=== PATIENT | female | born 1960 | race Caucasian/White ===

== ENCOUNTER 2017-08-09 12:10 | Inpatient (IN) | payer OTHER ==
[~2017-08-09] VITALS: Ht 162.6 cm; Wt 78.0 kg
[2017-08-09 12:21] VITALS: BP 150/86
--- NOTE | 2017-08-09 12:27 | NUR ---
Pt taken to bed 12.
--- NOTE | 2017-08-09 12:29 | NUR ---
57F BIB DAUGHTER C/O RECTAL BLEEDING D/T HEMORRHOIDS X YESTERDAY NIGHT; PER FAMILY PT UTILIZED 4 PADS SINCE LAST NIGHT TO NOW; FAMILY STATES PT NOTED BLEEDING WITH SMALL CLOTTS; PT C/O ACHING PAIN TO RECTUM, NON-RADIATING, 8/10 AT THIS TIME; SLIGHT BLEEDING NOTED TO SITE AT THIS TIME; PT STATES NO N/V/D AT THIS TIME; PT AA&OX4, BL LUNG SOUNDS CLEAR, RR EVEN/UNLABORED, SKIN IS WARM/DRY WITH EVEN AND STEADY GAIT; PT RESTING IN BED WITH HOB ELEVATED AND IN LOWEST POSITION; POSITIONED FOR COMFORT; ER MD MADE AWARE OF STATUS. WILL CONTINUE TO MONITOR.
--- NOTE | 2017-08-09 12:29 | NUR ---
PIETER BAEZ CHAPERONED ER MD DR. CLEARY FOR FEMALE RECTAL EXAM.
[2017-08-09] MEDS ORDERED: NACL 0.9% 1,000 ML IV SCH (12:38)
[2017-08-09] MEDS ORDERED: MORPHINE SULFATE 2 MG/ML SYR IVP ONE (12:40)
[2017-08-09] MEDS ORDERED: ONDANSETRON 4 MG/2 ML VIAL IVP ONE (12:40)
--- NOTE | 2017-08-09 12:57 | NUR ---
XRAY AT BEDSIDE.
[2017-08-09 13:03] LABS: BASOPHILS # (AUTO) 0.4 K/uL (0.00-0.22); BASOPHILS % (AUTO) 3.6 % (0.0-2.0); EOSINOPHILS # (AUTO) 0.1 K/uL (0-0.4); EOSINOPHILS % (AUTO) 0.9 % (0.0-4.0); HEMATOCRIT 38.7 % (36-48); HEMOGLOBIN 12.3 g/dL (12.0-16.0); LYMPHOCYTES # (AUTO) 2.2 K/uL (2.5-16.5); LYMPHOCYTES % (AUTO) 20.9 % (20.5-51.1); MEAN CORPUSCULAR HEMOGLOBIN 25 pg (27-31); MEAN CORPUSCULAR HGB CONC 32 g/dL (33-37); MEAN CORPUSCULAR VOLUME 80 fL (80-94); MONOCYTES # (AUTO) 0.4 K/uL (0.8-1.0); MONOCYTES % (AUTO) 3.6 % (1.7-9.3); NEUTROPHILS # (AUTO) 7.2 K/uL (1.8-7.7); PLATELET COUNT (AUTO) 248 K/uL (140-450); RED BLOOD CELL COUNT(AUTO) 4.86 MIL/uL (4.20-5.40); RED CELL DISTRIBUTION WIDTH 13.6 % (11.6-13.7); WHITE BLOOD COUNT (AUTO) 10.4 K/uL (4.8-10.8)
--- NOTE | 2017-08-09 13:03 | NUR ---
PT TAKEN TO CT VIA W/C ACCOMPANIED BY [employer] [employer] AT THIS TIME.
[2017-08-09 13:09] LABS: ANION GAP 14.3 (8-16); CREATININE 0.8 mg/dL (0.6-1.3); POTASSIUM 3.3 mmol/L (3.5-5.1)
[2017-08-09 13:13] LABS: PROTHROMBIN TIME 14.9 secs (10.8-13.4)
[2017-08-09 13:15] LABS: ALBUMIN 3.6 g/dL (3.4-5.0); TOTAL BILIRUBIN 1.2 mg/dL (0.0-1.0)
--- NOTE | 2017-08-09 13:33 | NUR ---
PER FAMILY, PT STATES PAIN 4/10 AT THIS TIME AND PT WOULD NOT LIKE MEDICATION AT THIS TIME; ER MD DR. CLEARY NOTIFIED; RR EVEN/UNLABORED; POSITIONED FOR COMFORT; WILL CONTINUE TO MONITOR.
--- NOTE | 2017-08-09 14:30 | NUR ---
PT APPEARS TO BE RESTING COMFORTABLY IN BED; RR EVEN/UNLABORED; POSITIONED FOR COMFORT; WILL CONTINUE TO MONITOR.
[2017-08-09] MEDS: DEXT 5% / NACL 0.45% 1,000 ML IV SCH (15:06)
[2017-08-09] MEDS ORDERED: LISI5TAB18 PO (15:08)
[2017-08-09] MEDS ORDERED: RIVA20TA PO (15:08)
[2017-08-09] MEDS ORDERED: ATOR40TA PO (15:08)
[2017-08-09] MEDS ORDERED: METO100T14 PO (15:08)
[2017-08-09] MEDS ORDERED: HYDROmorphone PFS 2 MG/ML SYR IVP PRN (15:10)
[2017-08-09] MEDS ORDERED: ACETAMINOPHEN 325 MG TAB PO PRN (15:10)
[2017-08-09] MEDS ORDERED: ONDANSETRON 4 MG/2 ML VIAL IVP PRN (15:10)
--- NOTE | 2017-08-09 15:18 | NUR ---
SAAD CLEARY AT BEDSIDE.
--- NOTE | 2017-08-09 15:33 | NUR ---
LAB AT BEDSIDE.
--- NOTE | 2017-08-09 15:38 | NUR ---
Patient will be admitted to care of DR. DAVIS. Admited to TELEMETRY. Will go to room 120A. Belongings list completed. Report to PIETER DIEGO AT BEDSIDE.
--- NOTE | 2017-08-09 15:55 | NUR ---
RECEIVED PT FROM ER VIA [facility]. REPORT GIVEN AT BEDSIDE. PT IS JOSE HOLLY. PT SPEAKS MONGOLIAN, PT AGREED TO USE HER DAUGHTER C SOFTWARE ENGINEER. DX RECTAL BLEEDING, THROMBUS EXTERNAL HEMORRHOID. CHECKED RECTUM, PIC TAKEN. CHANGED PAD. IV NOTED TO THE RIGHT AC 20G, FLUSHED, ASYMPTOMATIC. SCD APPLIED. NO S/S OF ACUTE DISTRESS. NO S/S OF ANEMIA, VITALS TAKEN WITHIN NORMAL LIMIT. ALL SAFETY PRECAUTIONS MET. PT IS ORIENTED TO THE ROOM, CALL LIGHT WITHIN REACH. Addendum: 08/09/17 at 1953 by Alvino Pollock RN PLACED PT ON TELE
[2017-08-09 16:00] VITALS: BP 142/71
--- NOTE | 2017-08-09 18:09 | NUR ---
SPOKE WITH DR WINTER OVER THE PHONE. MADE AWARE OF PT'S CONDITION. DR WINTER STATED HE WILL BE HERE SHORTLY.
--- NOTE | 2017-08-09 19:05 | NUR ---
DR WINTER HAS SEEN THE PT. DR WINTER WROTE RECOMMENDATIONS IN CHART.
--- NOTE | 2017-08-09 19:15 | NUR ---
PAGED DR SANTANA WHO IS COSTUME DESIGNER. ENDORSED PT TO HAND PACKER, MADE HAND PACKER AWARE OF DR WINTER'S RECOMMENDATIONS AND PLEASE CLARIFY IF PT NEED TO BE NPO. PT IN STABLE CONDITION.
--- NOTE | 2017-08-09 19:35 | NUR ---
RECEIVED FROM AM RN IN BED AWAKE AND ALERT. DAUGHTER AT BEDSIDE. SEEN BY MD WINTER. CALL LIGHT WITH IN REACH AND CARE PLANS FOR THE NIGHT DISCUSSED WITH HER AND DAUGHTER. TELEMETRY MONITORING. DX. RECTAL BLEED. ENCOURGED TO INFORM ME IF WITH BLEEDING STILL.
[2017-08-09 20:35] VITALS: BP 144/76
[2017-08-09] MEDS: METOPROLOL 50 MG TAB PO SCH (20:42)
[2017-08-09] MEDS: PIPER/TAZO 2.25GM/D5W PREMIX 50 ML IV SCH (20:46)
--- NOTE | 2017-08-09 23:00 | NUR ---
MD SANTANA HAD ORDERED DIET OF CLEAR LIQUID AND CONSULT FOR GI MD. Chan CONKLIN. PER MD SANTANA HE WILL INFORM MD ALVAREZ.
[2017-08-10] VITALS: BP 122/73
--- NOTE | 2017-08-10 01:03 | NUR ---
PT. SLEEPING AT THIS TIME. WAKES UP WHEN TOUCHED. CALL LIGHT WITH IN REACH AT ALL TIMES. ASSISTED TO RESTROOM LOCATED INSIDE ROOM. ABLE TO AMBULATE.
[2017-08-10] MEDS: DEXT 5% / NACL 0.45% 1,000 ML IV SCH ×3 (03:15→21:06)
[2017-08-10 05:02] VITALS: BP 123/68
[2017-08-10] MEDS: PIPER/TAZO 2.25GM/D5W PREMIX 50 ML IV SCH ×3 (05:43→21:09)
--- NOTE | 2017-08-10 07:10 | NUR ---
RECEIVED PATIENT REPORT AT BEDSIDE. PATIENT AWAKE AND ALERT. NO S/S OF DISTRESS NOTED. PATIENT IS SYRIAC SPEAKING. IV LINE NOTED TO LEFT AC WITH IVF INFUSING WELL. PATIENT ON TELE MONITORING. BED LOWERED WITH CALL LIGHT WITHIN REACH. WILL CONTINUE TO MONITOR
--- NOTE | 2017-08-10 07:20 | NUR ---
ENDORSED TO THE NEXT RN AWAKE AND NO COMPLAINTS DONE. SLEPT WELL THIS SHIFT.
[2017-08-10 07:45] LABS: BASOPHILS # (AUTO) 0.1 K/uL (0.00-0.22); BASOPHILS % (AUTO) 1.3 % (0.0-2.0); EOSINOPHILS # (AUTO) 0.2 K/uL (0-0.4); EOSINOPHILS % (AUTO) 2.1 % (0.0-4.0); HEMATOCRIT 37.4 % (36-48); HEMOGLOBIN 12.1 g/dL (12.0-16.0); LYMPHOCYTES # (AUTO) 1.5 K/uL (2.5-16.5); LYMPHOCYTES % (AUTO) 15.1 % (20.5-51.1); MEAN CORPUSCULAR HEMOGLOBIN 26 pg (27-31); MEAN CORPUSCULAR HGB CONC 32 g/dL (33-37); MEAN CORPUSCULAR VOLUME 80 fL (80-94); MONOCYTES # (AUTO) 0.3 K/uL (0.8-1.0); MONOCYTES % (AUTO) 3.2 % (1.7-9.3); NEUTROPHILS # (AUTO) 7.9 K/uL (1.8-7.7); NEUTROPHILS % (AUTO) 78.3 % (42.2-75.2); PLATELET COUNT (AUTO) 228 K/uL (140-450); RED BLOOD CELL COUNT(AUTO) 4.66 MIL/uL (4.20-5.40); RED CELL DISTRIBUTION WIDTH 13.6 % (11.6-13.7)
[2017-08-10 08:00] VITALS: BP 141/82
[2017-08-10 08:52] LABS: ALBUMIN 2.8 g/dL (3.4-5.0); ANION GAP 9.1 (8-16); CARBON DIOXIDE 27.4 mmol/L (21-32); CREATININE 0.8 mg/dL (0.6-1.3); POTASSIUM 3.5 mmol/L (3.5-5.1); TOTAL BILIRUBIN 1.7 mg/dL (0.0-1.0)
[2017-08-10] MEDS: PANTOPRAZOLE 40 MG INJ VIAL IVP SCH (08:56)
[2017-08-10] MEDS: ATORVASTATIN 20 MG TAB PO SCH (08:57)
[2017-08-10] MEDS: METOPROLOL 50 MG TAB PO SCH ×2 (08:57→21:09)
--- NOTE | 2017-08-10 09:13 | NUR ---
PATIENT HAS BEEN SCREENED AND CATEGORIZED MODERATE NUTRITION RISK. PATIENT WILL BE SEEN WITHIN 3-5 DAYS OF ADMISSION. 08/11/17-08/13/[address]
--- NOTE | 2017-08-10 09:30 | NUR ---
PATIENT AMBULATED TO THE BATHROOM TO VOID. NO S/S OF DISTRESS NOTED
--- NOTE | 2017-08-10 11:46 | NUR ---
CM NOTE INITIAL REVIEW FAXED TO [facility] [phone] [place] # [phone]
--- NOTE | 2017-08-10 13:50 | NUR ---
I call Patient's Daughter Shani Vaughan at discuss, confirm and gather patient's information. Patient's daughter confirmed that all patient's information provided previously during screen was correct and was pleased her mother was able to communicate. She agreed that Patient will be leaving soon to [place] and she will be following up with her care there with primary MD. She did had some questions and I explained to her my scope of practice and role as a medical aide. She verbalized understanding and stated "I will be asking the MD and Nurses some of my concerns. I encouraged communication with the staff and point out resources provided by there ad writer to her mother. Patient's daughter thank me for the resources and my assistance and I ended the call.
[2017-08-10 15:00] VITALS: BP 131/70
--- NOTE | 2017-08-10 15:30 | NUR ---
PATIENT SEEN BY DR CONKLIN
[2017-08-10] MEDS ORDERED: BOWEL EVACUANT DRINK 4,000 ML PDS PO SCH (16:00)
[2017-08-10] MEDS: LACTULOSE 20 GM/30 ML UDC PO SCH ×2 (17:25→21:09)
[2017-08-10] MEDS: SENNA 8.6 MG TAB PO SCH (17:26)
[2017-08-10 17:43] VITALS: BP 131/71
--- NOTE | 2017-08-10 18:00 | NUR ---
FAMILY MEMBERS PRESENT AT BEDSIDE. PATIENT AWAKE IN BED
--- NOTE | 2017-08-10 19:31 | NUR ---
PATIENT REPORT GIVEN AT BEDSIDE. NO S/S OF DISTRESS NOTED
--- NOTE | 2017-08-10 19:32 | NUR ---
RECEIVED REPORT FROM DAY SHIFT NURSE. AAOX4. NO DISTRESS NOTED. IV TO LEFT AC #20G, D5 1/2NS AT 100 ML/HR. NO C/O PAIN. PT ON ROOM AIR. CALL LIGHT WITHIN REACH.
[2017-08-10 20:00] VITALS: BP 127/72
--- NOTE | 2017-08-10 21:25 | NUR ---
PT LYING IN BED. MINIMAL RECTAL BLEEDING NOTED. NO C/O PAIN. CALL LIGHT WITHIN REACH.
--- NOTE | 2017-08-10 23:35 | NUR ---
[employer] PHONE USED FOR TRANSLATION ID# [id number]. PER HEAD OF RESEARCH & INSIGHTS, PT HAS RECTAL PAIN SACLE 03/20 AND WANTS PAIN MEDS. Addendum: 08/11/17 at 0033 by Les Gustafson RN INCOMPLETE
--- NOTE | 2017-08-10 23:36 | NUR ---
BLUE PHONE USED FOR TRANSLATION ID# [id number]. PER LOOPER FIXER, PT HAS RECTAL PAIN SCALE 10/10 AND WANTS PAIN MEDS. WILL MEDICATE PT.
[2017-08-11] VITALS: BP 146/79
--- NOTE | 2017-08-11 02:05 | NUR ---
PT SLEEPING BUT EASILY AROUSABLE. NO S/S OF PAIN OR DISCOMFORT. CALL LIGHT WITHIN REACH.
[2017-08-11 04:00] VITALS: BP 128/78
--- NOTE | 2017-08-11 04:30 | NUR ---
PT SLEEPING BUT WAKES EASILY. NO S/S OF DISTRESS. CALL LIGHT WITHIN REACH.
[2017-08-11] MEDS: PIPER/TAZO 2.25GM/D5W PREMIX 50 ML IV SCH ×3 (05:24→22:19)
--- NOTE | 2017-08-11 06:20 | NUR ---
PT LYING COMFORTABLY IN BED, AWAKE. NO C/O PAIN. ALL NEEDS MET AT THIS TIME. CALL LIGHT WITHIN REACH.
[2017-08-11] MEDS: DEXT 5% / NACL 0.45% 1,000 ML IV SCH ×2 (07:06→12:21)
--- NOTE | 2017-08-11 07:14 | NUR ---
ENDORSED PT TO DAY SHIFT NURSE. PT IN STABLE CONDITION.
--- NOTE | 2017-08-11 07:20 | NUR ---
RECEIVED REPORT AT BEDSIDE FOR CONTINUITY OF CARE FROM BUSINESS TEAM LEADER NURSE. PATIENT ALERT AND EASILY WOKEN. MOHAWK SPEAKING.NO ACUTE DISTRESS NOTED. PT WITH PATENT IV TO LEFT AC 20G D51/2NS @100ML/HR. CALL LIGHT WITHIN REACH. BED IN LOW POSITION. WILL CONT TO MONITOR PT.
[2017-08-11 07:36] VITALS: BP 144/72
--- NOTE | 2017-08-11 09:00 | NUR ---
PT AMBULATED TO BATHROOM PATIENT VOIDED URINE. NOTED PATIENT WITH BLOOD STREAKS ON DISPOSABLE SONNY. PATIENT DENIES PAIN AT THIS TIME. FAMILY AT BEDSIDE. WILL CONT TO MONITOR PT.
[2017-08-11] MEDS: PANTOPRAZOLE 40 MG INJ VIAL IVP SCH (10:15)
[2017-08-11] MEDS: ATORVASTATIN 20 MG TAB PO SCH (10:16)
[2017-08-11] MEDS: LACTULOSE 20 GM/30 ML UDC PO SCH ×4 (10:16→22:19)
[2017-08-11] MEDS: SENNA 8.6 MG TAB PO SCH ×3 (10:17→16:45)
[2017-08-11] MEDS: METOPROLOL 50 MG TAB PO SCH ×2 (10:21→22:20)
[2017-08-11 12:00] VITALS: BP 146/80
--- NOTE | 2017-08-11 12:21 | NUR ---
ADMINISTERED SCHEDULED MEDICATIONS ORDERED. PATIENT TOLERATED WELL. USED ADVERTISING SOLICITOR#[id number] ANNAR. EDUCATED PATIENT ON USE OF LAXATIVE PRIOR TO COLONOSCOPY PROCEDURE. NO ACUTE DISTRESS. PATIENT CONT WITH IVF ORDERED. ASHLEY WELL. CALL LIGHT WITHIN REACH. WILL CONT TO MONITOR PT.
--- NOTE | 2017-08-11 14:35 | NUR ---
PATIENT SLEEPING SOUNDLY IN BED. NO ACUTE DISTRESS NOTED. RESP EVEN AND UNLABORED. CALL LIGHT WITHIN REACH. WILL CONT TO MONITOR.
[2017-08-11 16:00] VITALS: BP 135/75
[2017-08-11] MEDS ORDERED: BOWEL EVACUANT DRINK 4,000 ML PDS PO SCH ×2 (16:00→16:10)
[2017-08-11] MEDS ORDERED: MAGNESIUM CITRATE 300 ML BTL PO SCH (16:11)
--- NOTE | 2017-08-11 16:45 | NUR ---
ADMINISTERED SCHEDULED MEDICATION ORDERED. EXPLAINED WHAT MEDICATION USE FOR. OVERNIGHT CASHIER NUMBER [id number].
--- NOTE | 2017-08-11 19:15 | NUR ---
ENDORSED REPORT TO DIGITAL ACCOUNT COORDINATOR NURSE AT BEDSIDE FOR CONTINUITY OF CARE. PATIENT STABLE.
--- NOTE | 2017-08-11 19:25 | NUR ---
RECEIVED PT IN STABLE CONDITION FROM AM NURSE. AWAKE,ALERT AND ORIENTED X4. SPEAKS SPANISH. ON TELE MONITOR. AMBULATORY . WITH IVF INFUSING WELL ON THE LT HAND #22. NO C/O ANY DISCOMFORT NOR PAIN AT THIS TIME. EXPLAINED TO PT THE NEED TO TAKE ALL THE PREP FOR COLONOSCOPY ARIANNE. PLAN OF CARE DISCUSSED AND STILL NEED FURTHER EXPLANATION . BED ON LOW POSITION . CALL LIGHT PLACED WITHIN EASY REACH. WILL CONTINUE TO MONITOR.
[2017-08-11 20:00] VITALS: BP 150/83
--- NOTE | 2017-08-11 20:10 | NUR ---
PT. NEED MORE EXPLANATION ABOUT THE PREP FOR COLOSCOPY. USED [employer] PHONE OIL DELIVERER FABRIZIO #[id number]. PT ABLE TO VERBALIZED UNDERSTANDING AFTER THE CONVERSATION WITH FABRIZIO.
[2017-08-11] MEDS: POLYETHYLENE GLYCOL 17 GM/PKT PO SCH ×2 (22:00→22:20)
--- NOTE | 2017-08-11 22:45 | NUR ---
PT JUST FINISHED AROUND 1,000 ML GOLYTELY, FINISHED THE CITROMA BUT ONLY TOOK A LITTLE OF THE LACTULOSE AND REFUSED THE MIRALAX. SHE SAID NO MORE. WILL CALL DR. Chan CONKLIN TO MADE HIM AWARE.
--- NOTE | 2017-08-11 23:00 | NUR ---
PAGED DR. Chan CONKLIN REGARDING PT REFUSING TO FINISHED THE PREP FOR COLONOSCOPY. HE SAID ITS OK. JUST CHECK OUTPUT. KEPT PT NPO AFTER MN.
--- NOTE | 2017-08-12 00:10 | NUR ---
PT INSTRUCTED NOTHING BY MOUTH FROM THIS TIME FOR THE COLONOSCOPY
--- NOTE | 2017-08-12 00:30 | NUR ---
HAD ANOTHER BM. YELLOWISH LIQUID NO SOLIDS NOTED.
[2017-08-12 00:35] VITALS: BP 117/76
[2017-08-12] MEDS: DEXT 5% / NACL 0.45% 1,000 ML IV SCH ×2 (01:26→11:10)
--- NOTE | 2017-08-12 02:15 | NUR ---
PT IS ASLEEP. NO S/S OF ANY DISCOMFORT NOTED.
[2017-08-12 04:05] VITALS: BP 142/80
[2017-08-12] MEDS: PIPER/TAZO 2.25GM/D5W PREMIX 50 ML IV SCH (04:42)
--- NOTE | 2017-08-12 04:48 | NUR ---
ADDITIONAL NOTES FOR ABOVE NOTES: NO BLOOD NOTED ON THE STOOL .
--- NOTE | 2017-08-12 04:48 | NUR ---
WNET TO THE BATHROOM. ANOTHER LIQUID CLEAR YELLOWISH STOOL , NO SOLIDS NOTED.
[2017-08-12 06:59] LABS: BASOPHILS # (AUTO) 0.1 K/uL (0.00-0.22); EOSINOPHILS # (AUTO) 0.3 K/uL (0-0.4); EOSINOPHILS % (AUTO) 3.5 % (0.0-4.0); HEMATOCRIT 35.9 % (36-48); HEMOGLOBIN 11.7 g/dL (12.0-16.0); LYMPHOCYTES # (AUTO) 1.9 K/uL (2.5-16.5); MEAN CORPUSCULAR HEMOGLOBIN 26 pg (27-31); MEAN CORPUSCULAR HGB CONC 33 g/dL (33-37); MEAN CORPUSCULAR VOLUME 80 fL (80-94); MONOCYTES # (AUTO) 0.4 K/uL (0.8-1.0); MONOCYTES % (AUTO) 6.1 % (1.7-9.3); NEUTROPHILS # (AUTO) 4.5 K/uL (1.8-7.7); NEUTROPHILS % (AUTO) 62.4 % (42.2-75.2); PLATELET COUNT (AUTO) 195 K/uL (140-450); RED CELL DISTRIBUTION WIDTH 13.4 % (11.6-13.7); WHITE BLOOD COUNT (AUTO) 7.2 K/uL (4.8-10.8)
--- NOTE | 2017-08-12 07:10 | NUR ---
RECEIVED PATIENT REPORT. PATIENT ASLEEP IN BED. NO S/S OF DISTRESS NOTED. CALL LIGHT WITHIN REACH. WILL CONTINUE TO MONITOR.
--- NOTE | 2017-08-12 07:30 | NUR ---
ENDORSED PT IN STABLE CONDITION TO AM NURSE.
[2017-08-12 07:41] LABS: ANION GAP 12.3 (8-16); CARBON DIOXIDE 26.9 mmol/L (21-32); CREATININE 0.8 mg/dL (0.6-1.3); POTASSIUM 3.2 mmol/L (3.5-5.1); TOTAL BILIRUBIN 1.4 mg/dL (0.0-1.0)
[2017-08-12 08:00] VITALS: BP 164/82
--- NOTE | 2017-08-12 08:45 | NUR ---
USED RESAAS ENGINEER STATION MAINLINE PHONE ID NUMBER: [id number] TO EXPLAIN TO THE PATIENT THAT SHE WILL BE HAVING COLONOSCOPY TODAY AND THE LAXATIVES ARE ORDERED FOR HER TO PREP HER FOR THE PROCEDURE. PATIENT REFUSED TO TAKE THE MEDICATIONS AND STATES THAT SHE FELT SICK DRINKING THE BOWEL PREP LAST NIGHT AND CAN NOT TAKE ANYMORE.
[2017-08-12] MEDS: PANTOPRAZOLE 40 MG INJ VIAL IVP SCH (08:50)
[2017-08-12] MEDS: METOPROLOL 50 MG TAB PO SCH ×2 (08:50→21:18)
[2017-08-12] MEDS: ATORVASTATIN 20 MG TAB PO SCH (08:50)
[2017-08-12] MEDS: LACTULOSE 20 GM/30 ML UDC PO SCH (09:00)
[2017-08-12] MEDS: SENNA 8.6 MG TAB PO SCH (09:00)
[2017-08-12] MEDS: POLYETHYLENE GLYCOL 17 GM/PKT PO SCH (09:00)
[2017-08-12] MEDS ORDERED: POTASSIUM CHLORIDE 10 MEQ TABER PO SCH (09:45)
[2017-08-12] MEDS ORDERED: PHYTONADIONE 10 MG/ML AMP SUBQ SCH (10:15)
[2017-08-12] MEDS ORDERED: fentaNYL 0.05 MG/ML VIAL ONE (10:42)
[2017-08-12] MEDS ORDERED: MIDAZOLAM 2 MG/2 ML VIAL ONE ×2 (10:42)
[2017-08-12] MEDS ORDERED: diphenhydrAMINE 50 MG/ML VIAL ONE (10:42)
--- NOTE | 2017-08-12 11:16 | NUR ---
ECHO DONE AT BEDSIDE
[2017-08-12 12:00] VITALS: BP 145/59
--- NOTE | 2017-08-12 12:40 | NUR ---
PATIENT LEFT THE UNIT FOR COLONOSCOPY
--- NOTE | 2017-08-12 13:20 | NUR ---
PATIENT BACK FROM COLONOSCOPY. PATIENT AWAKE AND ALERT NO S/S OF DISTRESS TEMP 97.1 BP: 110/52 HR: 57 O2 SAT 97% ON ROOM AIR
[2017-08-12] MEDS ORDERED: MIDAZOLAM 2 MG/2 ML VIAL IVP ONE (13:40)
[2017-08-12] MEDS ORDERED: fentaNYL 0.05 MG/ML VIAL IVP ONE (13:40)
[2017-08-12 16:00] VITALS: BP 114/65
[2017-08-12] MEDS: MORPHINE SULFATE 2 MG/ML SYR IVP PRN (18:49)
--- NOTE | 2017-08-12 19:26 | NUR ---
PATIENT REPORT GIVEN AT BEDSIDE. PATIENT ENDORSED IN STABLE CONDITION
--- NOTE | 2017-08-12 19:27 | NUR ---
RECEIVED PT FROM DAY SHIFT NURSE RK-RN. AOX4 SPEAKS LAO. BLUE PHONE IN ROOM. AMBULATORY. ON ROOM AIR. SKIN INTACT. IV LEFT HAND #22G, D5 1/2 NS 10ML/HR. CARDIAC DIET. CALL LIGHT WITHIN REACH. BED IN LOWEST POSITION. WILL CONTINUE TO MONITOR.
[2017-08-12 20:00] VITALS: BP 131/75
--- NOTE | 2017-08-12 21:20 | NUR ---
PT TOLERATED MEDICATION WELL. NO S/S OF RESPIRATORY DISTRESS OR DISCOMFORT NOTED. CALL LIGHT WITHIN REACH. WILL CONTINUE TO MONITOR.
--- NOTE | 2017-08-12 23:30 | NUR ---
PT REQUESTED A WARM BLANKET. PT RESTING IN BED TO CONTINUE SLEEPING. NO S/S OF RESPIRATORY DISTRESS OR DISCOMFORT NOTED. CALL LIGHT WITHIN REACH. BED IN LOWEST POSITION. WILL CONTINUE TO MONITOR.
[2017-08-13] VITALS: BP 120/56
--- NOTE | 2017-08-13 00:10 | NUR ---
PT SLEEPING AT THIS TIME. NO S/S OF RESPIRATORY DISTRESS OR DISCOMFORT NOTED AT THIS TIME. CALL LIGHT WITHIN REACH. BED IN LOWEST POSITION. WILL CONTINUE TO MONITOR.
--- NOTE | 2017-08-13 02:35 | NUR ---
PT SLEEPING AT THIS TIME. NO S/S OF RESPIRATORY DISTRESS OR DISCOMFORT NOTED. WILL CONTINUE TO MONITOR.
[2017-08-13 04:00] VITALS: BP 146/81
--- NOTE | 2017-08-13 04:00 | NUR ---
PT RESTING IN BED SLEEPING. NO S/S OF RESPIRATORY DISTRESS OR DISCOMFORT. VITAL SIGNS TOLERATED WELL. CALL LIGHT WITHIN REACH. BED IN LOWEST POSITION. WILL CONTINUE TO MONITOR.
[2017-08-13 07:02] LABS: BASOPHILS # (AUTO) 0.2 K/uL (0.00-0.22); BASOPHILS % (AUTO) 2.4 % (0.0-2.0); EOSINOPHILS # (AUTO) 0.2 K/uL (0-0.4); EOSINOPHILS % (AUTO) 3.3 % (0.0-4.0); HEMATOCRIT 35.2 % (36-48); HEMOGLOBIN 11.3 g/dL (12.0-16.0); LYMPHOCYTES # (AUTO) 1.9 K/uL (2.5-16.5); LYMPHOCYTES % (AUTO) 28.1 % (20.5-51.1); MEAN CORPUSCULAR HEMOGLOBIN 26 pg (27-31); MEAN CORPUSCULAR HGB CONC 32 g/dL (33-37); MEAN CORPUSCULAR VOLUME 81 fL (80-94); MONOCYTES # (AUTO) 0.4 K/uL (0.8-1.0); MONOCYTES % (AUTO) 5.8 % (1.7-9.3); NEUTROPHILS # (AUTO) 4.2 K/uL (1.8-7.7); NEUTROPHILS % (AUTO) 60.4 % (42.2-75.2); PLATELET COUNT (AUTO) 168 K/uL (140-450); RED BLOOD CELL COUNT(AUTO) 4.35 MIL/uL (4.20-5.40); RED CELL DISTRIBUTION WIDTH 13.6 % (11.6-13.7); WHITE BLOOD COUNT (AUTO) 6.9 K/uL (4.8-10.8)
--- NOTE | 2017-08-13 07:25 | NUR ---
ENDORSED STABLE PT TO AM NURSE NOAH STAPLETON.
--- NOTE | 2017-08-13 07:26 | NUR ---
RECEIVED REPORT FROM SHUTTLER NURSE THOMAS AT BEDSIDE FOR CONTINUITY OF CARE. PT IS AWAKE AND ORIENTED. INTRODUCED SELF AND UPDATED BOARD. PT GOT UP TO USE BATHROOM. WALKED WITH STEADY GAIT. PT DENIES PAIN AND DENIES RECTAL BLEEDING. IV TO R HAND 22G INFUSING D5 1/2NS @10ML/HR. SKIN WARM AND DRY. NO SIGNS OF DISTRESS. BED IN LOW POSITION, WHEELS LOCKED, CALL LIGHT WITHIN REACH. WILL CONTINUE TO MONITOR.
[2017-08-13 07:27] LABS: ALBUMIN 2.9 g/dL (3.4-5.0); ANION GAP 11.9 (8-16); CARBON DIOXIDE 28.8 mmol/L (21-32); CREATININE 0.8 mg/dL (0.6-1.3); PHOSPHORUS 3.3 mg/dL (2.5-4.9); POTASSIUM 3.7 mmol/L (3.5-5.1); TOTAL BILIRUBIN 1.3 mg/dL (0.0-1.0)
[2017-08-13 08:00] VITALS: BP 143/82
[2017-08-13 08:07] LABS: PROTHROMBIN TIME 11.7 secs (10.8-13.4)
[2017-08-13] MEDS: POLYETHYLENE GLYCOL 17 GM/PKT PO SCH (09:40)
[2017-08-13] MEDS: ATORVASTATIN 20 MG TAB PO SCH (09:40)
[2017-08-13] MEDS: METOPROLOL 50 MG TAB PO SCH ×2 (09:40→20:27)
--- NOTE | 2017-08-13 10:06 | NUR ---
USE [employer]IK BROADCAST CHIEF ENGINEER ID# [id number] FOR TRANSLATION. PT DENIES PAIN STATED IT IS MUCH LESS THAN YESTERDAY AND DOES NOT NEED PAIN MEDICATION. STATED SHE DID NOT HAVE BM TODAY AND NO LONGER HAVING RECTAL BLEEDING. PT ASKED ABOUT D/C. INFORMED PT THAT CONSULT STILL PENDING WITH POSSIBLE SURGERY. PT VERBALIZED UNDERSTANDING. ALSO SPOKE WITH PT'S SON KWAME ON PHONE AND EXPLAINED STILL WAITING FOR SURGERY CONSULT. FAMILY AND PT AWARE. PT IN NO SIGNS OF DISTRESS. CALL LIGHT WITHIN REACH. WILL CONTINUE TO MONITOR.
[2017-08-13 12:00] VITALS: BP 140/77
--- NOTE | 2017-08-13 12:12 | NUR ---
CM NOTE CONCURRENT REVIEW FAXED TO [facility] [phone] [place] # [phone]
[2017-08-13] MEDS: DEXT 5% / NACL 0.45% 1,000 ML IV SCH (13:06)
--- NOTE | 2017-08-13 13:45 | NUR ---
SPOKE WITH PT'S DAUGHTER DARYL. WHO TRANSLATED IN CZECH FOR PT. INFORMED THEM OF NO D/C ORDER TODAY BUT PENDING A SURGERY CONSULT. PT AND DAUGHTER VERBALIZED UNDERSTANDING. PT DENIES PAIN. DENIES RECTAL BLEEDING. WILL CONTINUE TO MONITOR.
[2017-08-13 16:00] VITALS: BP 138/63
--- NOTE | 2017-08-13 16:29 | NUR ---
08/13/2017 RD INITIAL ASSESSMENT COMPLETED PLEASE REFER TO NUTRITION ASSESSMENT UNDER CARE ACTIVITY FOR ESTIMATED NUTRITIONAL NEEDS. CONTINUE CURRENT DIET TOLERATED RD TO FOLLOW-UP IN 3-5 DAYS PATIENT IS MODERATE RISK. ISAC ACOSTA RD
--- NOTE | 2017-08-13 17:30 | NUR ---
SPOKE TO DR. WINTER AND FOLLOW UP THE PLAN FOR THE PATIENT. HE SAID HE WILL NOT DO SURGERY ON THE PATIENT BECAUSE SHE'S TAKING BLOOD THINNER I TOLD HIM THAT HE DIDN'T SEE THE PATIENT YET. HE SAID HE WILL CALL BACK LATER. ENDORSE TO THE NEXT SHIFT CHARGE NURSE.
--- NOTE | 2017-08-13 19:20 | NUR ---
ENDORSED PT TO ASSOCIATE PROFESSOR OF MUSIC NURSE NEREIDA AT BEDSIDE FOR CONTINUITY OF CARE. PT'S DAUGHTER AT BEDSIDE. PT IN STABLE CONDITION.
--- NOTE | 2017-08-13 19:21 | NUR ---
RECEIVED BEDSIDE REPORT FROM DAY SHIFT NURSE GARCIA RN, PT STABLE, NO DISTRESS NOTED, IV TO L HAND 22G RUNNING D5 1/2 NS @ 10ML/HR, INFUSING WELL, PT ON ROOM AIR, NO SOB, INITIAL ASSESSMENT DONE, ALL SAFETY PRECAUTION MET, WILL CONTINUE TO MONITOR.
[2017-08-13 20:00] VITALS: BP 127/73
[2017-08-13] MEDS: HYDROCORTISONE ACETATE 25 MG SUPP RC SCH (20:27)
--- NOTE | 2017-08-13 20:27 | NUR ---
DUE MEDICATION GIVEN, PT TOLERATED WELL, NO DISTRESS NOTED, CALL LIGHT WITHIN REACH, WILL CONTINUE TO MONITOR.
--- NOTE | 2017-08-13 23:13 | NUR ---
PT SLEEPING, NO DISTRESS NOTED, CALL LIGHT WITHIN REACH, WILL CONTINUE TO MONITOR.
[2017-08-14] VITALS: BP 122/61
--- NOTE | 2017-08-14 02:08 | NUR ---
CHECKED ON PT, PT SLEEPING, NO DISTRESS NOTED, CALL LIGHT WITHIN REACH, WILL CONTINUE TO MONITOR.
[2017-08-14 04:00] VITALS: BP 120/76
--- NOTE | 2017-08-14 04:10 | NUR ---
CHECKED ON PT, PT SLEEPING, EASY TO AROUSE, NO DISTRESS NOTED, PT REQUESTED BLANKET, BLANKET GIVEN PT STABLE, PT SLEEPING, NO DISTRESS NOTED, CALL LIGHT WITHIN REACH.
--- NOTE | 2017-08-14 07:24 | NUR ---
ENDORSED PLAN OF CARE TO DAY SHIFT NURSE GARCIA STAPLETON, PT STABLE, NO DISTRESS NOTED, CALL LIGHT WITHIN REACH.
--- NOTE | 2017-08-14 07:25 | NUR ---
RECEIVED REPORT FROM DIRECTOR FOR BEAUTY SCHOOL NURSE NEREIDA AT BEDSIDE FOR CONTINUITY OF CARE. PT IS AWAKE AND ORIENTED. INTRODUCED SELF AND UPDATED BOARD. PT DENIES RECTAL BLEEDING. DENIES PAIN AT THIS TIME. NO SIGNS OF DISTRESS. WILL CONTINUE TO MONITOR.
[2017-08-14 08:00] VITALS: BP 117/66
[2017-08-14] MEDS: METOPROLOL 50 MG TAB PO SCH (09:00)
[2017-08-14] MEDS: HYDROCORTISONE ACETATE 25 MG SUPP RC SCH (09:00)
[2017-08-14] MEDS: ATORVASTATIN 20 MG TAB PO SCH (09:19)
[2017-08-14] MEDS: POLYETHYLENE GLYCOL 17 GM/PKT PO SCH (09:20)
[2017-08-14] MEDS: MORPHINE SULFATE 2 MG/ML SYR IVP PRN (09:21)
--- NOTE | 2017-08-14 09:21 | NUR ---
PT CALLED DAUGHTER GORDO, WHO TRANSLATED IN [place]IVE[place]. PT STATED SHE HAD RECTAL PAIN. 11/18 AND REQUESTED PAIN MEDICATION. ADMINISTERED MORPHINE IVP FOR PAIN AND SCHEDULED MEDS. HELD METOPROLOL DUE TO DECREASED HR 58. PT TOLERATED MEDS WELL. GOT UP TO USE BATHROOM WITH STEADY GAIT. ENCOURAGED PT TO AMBULATE DOWN THE SANCHEZ WHEN SHE CAN TOLERATE IT. PT AND DAUGHTER VERBALIZED UNDERSTANDING. NO SIGNS OF DISTRESS. WILL CONTINUE TO MONITOR.
--- NOTE | 2017-08-14 10:05 | NUR ---
CM NOTE CONCURRENT REVIEW FAXED TO [facility] [phone] N[place] # [phone]
[2017-08-14 12:00] VITALS: BP 116/70
[2017-08-14] MEDS: DEXT 5% / NACL 0.45% 1,000 ML IV SCH (13:06)
--- NOTE | 2017-08-14 14:00 | NUR ---
DR. DAVIS CAME TO SEE PT. REPORTED THAT PT IS REFUSING SURGERY IF NEEDED BY CONSULT. RECEIVED ORDER PT OK TO D/C HOME.
[2017-08-14 16:00] VITALS: BP 120/62
--- NOTE | 2017-08-14 17:30 | NUR ---
PT D/C TO GO HOME. GAVE D/C FORMS, INSTRUCTIONS, LABS AND FOLLOW UP APPOINTMENT TO PT AND DAUGHTER GORDO. VERBALIZED UNDERSTANDING AND SIGNED FORMS. REMOVED IV CATHETER FROM L HAND 22G. IV CATHETER TIP INTACT. APPLIED DRESSING AND PRESSURE TO SITE NO BLEEDING NOTED. REMOVED ID BANDS AND TELE MONITOR. PT CHANGED IN OWN CLOTHES AND LEFT WITH ALL PERSONAL BELONGINGS. LEFT UNIT VIA AMBULATION WITH STEADY GAIT. LEFT IN STABLE CONDITION.
== END 2017-08-14 17:30 | disposition home or self-care (01) | DRG 201 ==
LOC: MED 12:10 → MTU 15:13
PROVIDERS: ADMIT Hospitalist; ATTEND Hospitalist
PROC: 0DJD8ZZ Inspection of Lower Intestinal Tract, Via Natural or Artificial Opening Endoscopic (ICD-10-PCS; principal; 2017-08-09)
DX: I48.91 Unspecified atrial fibrillation (principal); D68.9 Coagulation defect, unspecified; I11.9 Hypertensive heart disease without heart failure; K64.8 Other hemorrhoids; E78.5 Hyperlipidemia, unspecified; E78.00 Pure hypercholesterolemia, unspecified; K64.5 Perianal venous thrombosis; I25.10 Atherosclerotic heart disease of native coronary artery without angina pectoris; I48.0 Paroxysmal atrial fibrillation; I49.1 Atrial premature depolarization; I49.3 Ventricular premature depolarization; Z79.01 Long term (current) use of anticoagulants
CPT/HCPCS: 36415; 71045; 80053; 83735; 84100; 85025; 85610; 85730; 86886; 86900; 86901; 87040; 87081; 93005; 96360; 99285; C9113; J1170; J1200; J2250; J2270; J2405; J2543; J3010; J3430; J7030; Q0092